=== PATIENT | female | born 1935 | race Caucasian/White ===

== ENCOUNTER 2020-04-15 08:58 | Outpatient (CLI) | payer MEDICARE, SELFPAY ==
--- NOTE | 2020-04-15 09:05 | MM_ITS ---
WS: [id number] BILATERAL DIGITAL SCREENING MAMMOGRAPHY WITH CAD CLINICAL INFORMATION: SCREENING HISTORY: Screening mammogram. No current complaints. COMPARISON: TECHNIQUE: Bilateral CC and MLO views. FINDINGS: The breasts are composed of heterogeneous fibroglandular density tissue, which can limit the detectio n of small underlying mass lesions. No suspicious mass, asymmetry, calcifications, or architectural d istortion. No evidence of malignancy. MM/[id number] IMPRESSION: BI-RADS: 1-Negative FOLLOW UP: 1 Year Follow-up Recommend return to annual screening mammography.
[2020-04-15 09:27] LABS: Basophils % 0.6 %; Eosinophils # 0.3 10^3/uL (0.0-0.8); Eosinophils % 3.9 %; Hemoglobin 13.9 g/dL (11.5-15.3); Lymphocytes # 1.8 10^3/uL (0.8-4.8); Lymphocytes % 28.2 %; Mean Corpuscular HGB Conc 32.3 g/dL (30.0-36.0); Mean Corpuscular Hemoglobin 30.4 pg (28.0-34.0); Mean Corpuscular Volume 94.1 fL (81-99); Mean Platelet Volume 10.1 fL (7.4-10.4); Monocytes # 0.4 10^3/uL (0.2-0.9); Monocytes % 5.7 %; Neutrophils # 3.96 10^3/uL (1.8-7.7); Neutrophils % 61.4 %; Nucleated Red Blood Cells % 0 %; Platelet Count 233 10^3/cmm (130-400); Red Blood Count 4.57 10^6/uL (4.1-5.3); Red Cell Distribution Width 13.7 % (12.1-15.1); White Blood Count 6.5 10^3/uL (4.0-10.0)
[2020-04-15 09:51] LABS: Estmated Average Glucose 134; Hemoglobin A1C 6.3 % (4.0-6.0)
[2020-04-15 09:55] LABS: Alanine Aminotransferase 13 U/L (0-33); Albumin Level 4.7 g/dL (3.5-5.2); Alkaline Phosphatase 77 IU/L (35-105); Anion Gap 11.1 (5-19); Aspartate Amino Transferase 20 U/L (0-32); Blood Urea Nitrogen 19 mg/dL (8-23); Calcium 10.4 mg/dL (8.5-10.5); Carbon Dioxide 28 mmol/L (22-29); Chloride 99 mmol/L (98-107); Globulin 2.2 g/dL (1.3-4.6); Glucose 114 mg/dL (65-115); Osmolality Calculated 275 mOsm/kg (285-295); Potassium 4.1 mmol/L (3.5-5.1); Sodium 134 mmol/L (136-145); Thyroid Stimulating Hormone 2.43 uIU/mL (0.27-4.20); Total Bilirubin 0.5 mg/dL (0.15-1.2); Total Protein 6.9 g/dL (6.6-8.7)
== END 2020-04-15 08:59 | disposition home or self-care (01) ==
LOC: RADSHAW 09:04
PROVIDERS: PCP Internal Medicine; Visit Provider Internal Medicine
DX: Z12.31 Encounter for screening mammogram for malignant neoplasm of breast (principal); E78.00 Pure hypercholesterolemia, unspecified; E03.9 Hypothyroidism, unspecified; I10 Essential (primary) hypertension
CPT/HCPCS: 77067; 80053; 83036; 84443; 85025

== ENCOUNTER 2021-04-28 08:10 | Outpatient (CLI) | payer MEDICARE, SELFPAY ==
--- NOTE | 2021-04-28 08:21 | MM_ITS ---
WS: [id number] Bilateral screening digital mammogram, 04/28/2021 Clinical Data: Z00.00 - Encounter for general adult medical examination ... Comparison: 04/15/2020, 02/19/2019, 01/30/2018, 10/29/2012, 10/15/2011, 09/27/2010, 08/26/2009, 08/20/2008, 1 10/19/2006, 07/01/2006. Findings: The breast parenchymal pattern shows fibroglandular tissue. No spiculated masses or clustered calcif ications are seen. There is a mole marker on the left breast. MM/[id number] Impression: 1. Negative bilateral mammogram unchanged. 2. Recommend annual screening mammograms. BIRADS: 1-Negative FOLLOW UP: 1 Year Follow-up The CAD schedule checker was used.
== END 2021-04-28 08:11 | disposition home or self-care (01) ==
LOC: RADSHAW 08:14
PROVIDERS: PCP Internal Medicine; Visit Provider Internal Medicine
DX: Z12.31 Encounter for screening mammogram for malignant neoplasm of breast (principal)
CPT/HCPCS: 77067

== ENCOUNTER 2021-04-28 08:48 | Outpatient (CLI) | payer MEDICARE, SELFPAY ==
[2021-04-28 09:11] LABS: Basophils # 0.1 10^3/uL (0.0-0.1); Basophils % 0.8 %; Eosinophils # 0.3 10^3/uL (0.0-0.8); Eosinophils % 4.3 %; Hematocrit 44.4 % (37.0-47.0); Hemoglobin 14.4 g/dL (11.5-15.3); Lymphocytes # 2.4 10^3/uL (0.8-4.8); Lymphocytes % 30.3 %; Mean Corpuscular HGB Conc 32.4 g/dL (30.0-36.0); Mean Corpuscular Hemoglobin 31.2 pg (28.0-34.0); Mean Corpuscular Volume 96.1 fl (81-99); Mean Platelet Volume 9.8 fL (7.4-10.4); Monocytes # 0.5 10^3/uL (0.2-0.9); Monocytes % 6.7 %; Neutrophils # 4.48 10^3/uL (1.8-7.7); Neutrophils % 57.6 %; Nucleated Red Blood Cells % 0 %; Platelet Count 232 10^3/cmm (130-400); Red Blood Count 4.62 10^6/uL (4.1-5.3); Red Cell Distribution Width 13.5 % (12.1-15.1); White Blood Count 7.8 10^3/uL (4.0-10.0)
[2021-04-28 09:35] LABS: Estmated Average Glucose 111; Hemoglobin A1C 5.5 % (4.0-6.0)
[2021-04-28 09:39] LABS: Alanine Aminotransferase 13 U/L (0-33); Albumin Level 4.5 g/dL (3.5-5.2); Alkaline Phosphatase 86 IU/L (35-105); Anion Gap 14.4 (5-19); Aspartate Amino Transferase 16 U/L (0-32); Blood Urea Nitrogen 17 mg/dL (8-23); Calcium 10.1 mg/dL (8.5-10.5); Carbon Dioxide 28 mmol/L (22-29); Chloride 100 mmol/L (98-107); Chol HDL Ratio 2.36 mg/dL (0.0-4.40); Cholesterol 139 mg/dL (0-200); Glucose 106 mg/dL (65-115); HDL Cholesterol 59 mg/dL (60-100); LDL Cholesterol Calculated 62 mg/dL (50-129); LDL HDL Ratio 1.05 RATIO (0.00-3.22); Osmolality Calculated 288 mOsm/kg (285-295); Potassium 4.4 mmol/L (3.5-5.1); Sodium 138 mmol/L (136-145); Thyroid Stimulating Hormone 3.68 uIU/mL (0.27-4.20); Total Bilirubin 0.4 mg/dL (0.15-1.2); Total Protein 7.5 g/dL (6.6-8.7); Triglycerides 89 mg/dL (0-150)
== END 2021-04-28 08:49 | disposition home or self-care (01) ==
PROVIDERS: PCP Internal Medicine; Visit Provider Internal Medicine
DX: I10 Essential (primary) hypertension (principal); Z00.00 Encounter for general adult medical examination without abnormal findings; E03.9 Hypothyroidism, unspecified
CPT/HCPCS: 80053; 80061; 83036; 84443; 85025

== ENCOUNTER → 2022-07-09 14:22 | Outpatient (BNVA) | payer MEDICARE, SELFPAY | PROVIDERS: PCP Internal Medicine; Visit Provider Internal Medicine | DX: F43.21 Adjustment disorder with depressed mood (principal); Z63.4 Disappearance and death of family member; I10 Essential (primary) hypertension; Z00.00 Encounter for general adult medical examination without abnormal findings; E78.00 Pure hypercholesterolemia, unspecified; E03.9 Hypothyroidism, unspecified | CPT/HCPCS: 80053; 80061; 84443; 85025 ==

== ENCOUNTER → 2022-08-05 11:15 | Outpatient (BNVA) | payer MEDICARE, SELFPAY | PROVIDERS: PCP Internal Medicine; Visit Provider Registered Nurse Neonatal Intensive Care | DX: J02.9 Acute pharyngitis, unspecified (principal); J06.9 Acute upper respiratory infection, unspecified | CPT/HCPCS: 87400 ==

== ENCOUNTER 2022-09-26 11:21 | Emergency (ER) | payer MEDICARE, SELFPAY ==
[2022-09-26] VITALS (13 sets, daily range): BP systolic 145–222; BP diastolic 49–101; PULSE 66–79; RESP 16–24; TEMP 36.7; O2SAT 95–98; BMI 26.3
--- NOTE | 2022-09-26 11:37 | ED_ITS ---
HPI - Dizziness General: Chief Complaint: Dizziness Stated Complaint: dizziness Time Seen by Provider: 09/26/22 11:37 History of Present Illness: HPI Narrative: Ms Rg is an 87-year-old lady with history of hypertension, thyroid disorder, hyperlipidemia presenting to the emergency department due to dizziness. She reports few day history of intermittent episodes of room spinning sensation. Today was the most severe and started while she was standing. Describes sudden onset of severe room spinning and unsteady feeling requiring assistance. Denies any other associated neurologic symptoms. Has noticed some visual disturbance but is unsure if it is binocular or monocular. No other reliable triggering factors or events or history of similar. No other specific changes in health, exacerbating, or alleviating factors identified. Onset (ago): day(s) Timing: intermittent Severity: severe Description: room spinning , off-balance and difficulty walking History of similar symptoms: No Exacerbating factors: movement/ambulation and change in body position Relieving factors: nothing Associated symptoms: Reports no associated symptoms Associated neuro symptoms: Reports no associated symptoms Review of Systems General: Reports: 10 or more systems reviewed and unremarkable except in HPI and below PFSH ED PFSH: Medical History (Updated 10/04/22 @ 00:00 by LUIS DANIEL West) Essential (primary) hypertension Hypothyroidism, unspecified Pure hypercholesterolemia, unspecified Social History Smoking and tobacco status: current every day smoker Alcohol intake: never Adopted: No Marital status: Number of children: 4 Number of grandchildren: 6 service: No History of recent travel: No Current gender identity: Female Physical Exam Const: COMMON NORMALS: patient oriented x3 and alert GENERAL APPEARANCE: cooperative and well developed HENMT: COMMON NORMALS: normocephalic and atraumatic HEAD & SCALP: normocephalic and atraumatic Eye: COMMON NORMALS: conjunctivae normal CONJUNCTIVA: Yes conjunctivae no rmal SCLERA: sclerae normal Neck/C-Spine: COMMON NORMALS: supple GENERAL: Yes trachea midline Resp: COMMON NORMALS: normal respiratory effort EFFORT & INSPECTION: Yes able to speak in complete sentences Cardio: COMMON NORMALS: regular rate and regular rhythm RATE: regular rate RHYTHM: regular rhythm GI: COMMON NORMALS: Soft to palpation PALPATION: Yes Soft to palpation and No Tenderness to palpation present (GI) PERCUSSION: normal to percussion Extremity: GENERAL: Yes normal exam except as noted and No edema Neuro: COMMON NORMALS: patient oriented x3, CN's II-XII intact bilaterally, moves all extremities, no focal motor deficits and no sensory deficits noted SENSORIUM/ORIENTATION: Yes alert and No Orientation impaired OTHER: Significantly unsteady when standing Psych: COMMON NORMALS: mental status grossly normal and Normal thought process present THOUGHT PROCESS: Normal thought process present Course Vital Signs: Vital signs: Vital Signs Temperature 98.1 F 09/26/22 11:44 Pulse Rate 77 09/26/22 16:07 Respiratory Rate 16 09/26/22 16:07 Blood Pressure 161/49 09/26/22 16:07 Pulse Oximetry 97 09/26/22 16:07 Oxygen Delivery Me thod 09/26/22 12:30 [facility] - Dizziness Medical Decision Making 87-year-old lady presenting with dizziness. Given duration of symptoms and physical exam findings the patient is not a tPA candidate. EKG shows sinus rhythm with nonspecific ST segment abnormalities, normal intervals, no STEMI. These are changes compared to interpretation from remote prior. Hematologic panel unremarkable similar to prior, perhaps mild dehydration on metabolic panel. In the absence of chest pain I believe that the patient has a negative range 2-hour delta troponin. TSH is elevated with normal free T4. No UTI. Chest x-ray with no lobar consolidation or pneumothorax. No recent comparison available. Given severity of symptoms without reproducible neurologic abnormality consistent with peripheral finding CTA is warranted. I discussed CTA results with patient, no evidence of acute large vessel occlusion or hemorrhage/mass. The patient is on aspirin and statin for secondary prevention given ICA stenosis. Patient feels significantly improved with IV fluids, antivertigo medications. She is able to ambulate with a steady gait. I discussed uncertain nature,, however likely peripheral, of patient's symptoms. She is comfortable with outpatient management with strict return precautions and follow-up plan. The results of ED evaluation were discussed with the patient including prescriptions and/or symptomatic cares (if applicable) including appropriate and responsible use, followup plan, and return precautions. The patient verbalized understanding and felt safe for discharge. Medical Records I reviewed the patient's medical records. Lab Data I reviewed the patient's lab results. 09/26/22 12:00 09/26/22 12:00 Radiology Impressions Chest X-Ray 09/26/22 11:45 IMPRESSION: 1. No acute chest abnormality. 2. Metallic pin left humeral head Head/Neck CTA 09/26/22 11:45 IMPRESSION: 1. Origin RIGHT ICA 70% stenosis. 2. Origin LEFT ICA 65-70% stenosis. 3. Mild atherosclerosis intracranial carotid arteries the cavernous sinuses. 4. Moderate cerebral atrophy and moderate small vessel ischemic changes. 5. No intracranial hemorrhage. Laboratory Results WBC 8.0 10^3/uL (4.0-10.0) 09/26/22 12:00 RBC 4.16 10^6/uL (4.1-5.3) 09/26/22 12:00 Hgb 12.9 g/dL (11.5-15.3) 09/26/22 12:00 Hct 39.5 % (37.0-47.0) 09/26/22 12:00 MCV 95.0 fl (81-99) 09/26/22 12:00 MCH 31.0 pg (28.0-34.0) 09/26/22 12:00 MCHC 32.7 g/dL (30.0-36.0) 09/26/22 12:00 RDW 13.7 % (12.1-15.1) 09/26/22 12:00 Plt Count 208 10^3/cmm (130-400) 09/26/22 12:00 MPV 9.7 fL (7.4-10.4) 09/26/22 12:00 Neut % (Auto) 68.3 % 09/26/22 12:00 Lymph % (Auto) 22.3 % 09/26/22 12:00 [place] % (Auto) 6.1 % 09/26/22 12:00 Eos % (Auto) 2.5 % 09/26/22 12:00 Baso % (Auto) 0.6 % 09/26/22 12:00 Neut # (Auto) 5.47 10^3/uL (1.8-7.7) 09/26/22 12:00 Lymph # (Auto) 1.8 10^3/uL (0.8-4.8) 09/26/22 12:00 [place] # (Auto) 0.5 10^3/uL (0.2-0.9) 09/26/22 12:00 Eos # (Auto) 0.2 10^3/uL (0.0-0.8) 09/26/22 12:00 Baso # (Auto) 0.1 10^3/uL (0.0-0.1) 09/26/22 12:00 Nucleated RBC % (auto) 0 % 09/26/22 12:00 Nucleated RBCs # 0.0 /100WBC 09/26/22 12:00 Sodium 135 mmol/L (136-145) L 09/26/22 12:00 Potassium 4.1 mmol/L (3.5-5.1) 09/26/22 12:00 Chloride 98 mmol/L (98-107) 09/26/22 12:00 Carbon Dioxide 29 mmol/L (22-29) 09/26/22 12:00 Anion Gap 12.1 (5-19) 09/26/22 12:00 BUN 19 mg/dL (8-23) 09/26/22 12:00 Creatinine 0.7 mg/dL (0.5-0.9) 09/26/22 12:00 GFR Calculation Not Reportable 09/26/22 12:00 Glucose 111 mg/dL (65-115) 09/26/22 12:00 Calculated Osmolality 283 mOsm/kg (285-295) L 09/26/22 12:00 Calcium 9.6 mg/dL (8.5-10.5) 09/26/22 12:00 Total Bilirubin 0.3 mg/dL (0.15-1.2) 09/26/22 12:00 AST 19 U/L (0-32) 09/26/22 12:00 ALT 15 U/L (0-33) 09/26/22 12:00 Alkaline Phosphatase 69 U/L (35-105) 09/26/22 12:00 Troponin T Baseline 9 ng/L (0-10) 09/26/22 12:00 Troponin T 120 Minute 13.91 ng/L (0-10) H 09/26/22 14:00 Delta Troponin T 4.91 ABS# (0-10) 09/26/22 14:00 NT-Pro-B Natriuret Pep 469 pg/mL (0-450) H 09/26/22 12:00 Total Protein 6.6 g/dL (6.6-8.7) 09/26/22 12:00 Albumin 4.4 g/dL (3.5-5.2) 09/26/22 12:00 Globulin 2.2 g/dL (1.3-4.6) 09/26/22 12:00 TSH 5.64 uIU/mL (0.27-4.20) H 09/26/22 12:00 Free T4 1.33 ng/dL (0.82-1.77) 09/26/22 12:00 Urine Color Yellow (Yellow) 09/26/22 14:17 Urine Appearance Clear (CLEAR) 09/26/22 14:17 Urine pH 8 (5-7) H 09/26/22 14:17 Ur Specific [place] 1.015 (1.005-1.030) 09/26/22 14:17 Urine Protein Neg (Negative) 09/26/22 14:17 Urine Glucose (UA) Norm (Normal) 09/26/22 14:17 Urine Ketones Negative (Negative) 09/26/22 14:17 Urine Blood Neg (Negative) 09/26/22 14:17 Urine Nitrate Negative (Negative) 09/26/22 14:17 Urine Bilirubin Neg (Negative) 09/26/22 14:17 Prot Sulfosalicylic Acd Negative (Negative) 09/26/22 14:17 Urine Urobilinogen Neg mg/dL (Negative) 09/26/22 14:17 Ur Leukocyte Esterase Negative (Negative) 09/26/22 14:17 Discharge Plan Discharge Patient Disposition: Home Clinical Impression: Dizziness, Carotid artery stenosis Condition: Stable Prescriptions: New meclizine 25 mg tablet 25 mg PO TID PRN (Reason: dizziness) Qty: 30 0RF No Action aspirin [Adult Aspirin Regimen] 81 mg tablet,delayed release (DR/EC) 81 mg PO DAILY garlic 1,000 mg capsule 1,000 mg PO DAILY multivitamin Tablet 1 tab PO DAILY ascorbic acid (vitamin C) 500 mg capsule 500 mg PO BID duloxetine 30 mg capsule,delayed release(DR/EC) 30 mg PO DAILY Qty: 90 3RF simvastatin 20 mg tablet 20 mg PO DAILY Qty: 90 3RF levothyroxine [Synthroid] 88 mcg tablet 88 mcg PO DAILY Qty: 90 3RF metoprolol tartrate 50 mg tablet 50 mg PO BID Qty: 180 3RF Tylenol Ex Str Rapid Release 500 mg Tablet 500 mg PO Q6H PRN (Reason: Pain) Vitamin D3 50 mcg (2,000 unit) Capsule 50 mcg PO DAILY Discharge Orders: Discharge ED (Routine); Ordered 09/26/22 Ordered By: Vinny Bullard Referrals: Carlin Alberts MD [Primary Care Provider] - Discharge Diet: Usual diet Discharge Activity: Increase activity as tolerated Patient Instructions: Vertigo (ED), Dizziness (ED) Activity Restrictions/Additional Instructions: Thank you for visiting the emergency department. You were seen and evaluated for dizziness. The exact cause of your symptoms is unclear though likely related to inner ear irritation or dysfunction causing vertigo. We are pleased that you had improvement. Please ensure that you are staying hydrated and be cautious with position changes. Please follow-up with your primary care provider. Return to the emergency department for any new neurologic symptoms, uncontrolled symptoms, or anything else that you are concerned about a feel needs emergency department evaluation. Coding Level of Care Code ED Elastic Attacher Zigzag for Go Fwleon Exam Comprehensive
--- NOTE | 2022-09-26 11:45 | CT_ITS ---
WS: [id number] CT ANGIOGRAM CEREBRAL AND CAROTID ARTERIES CT HEAD, NONCONTRAST HISTORY: dizziness TECHNIQUE: Noncontrast CT head performed. CT angiogram is performed of the carotid and cerebral arter ies. During arterial injection imaging is obtained from the skull vertex to the aortic arch. Coronal and sagittal reformats are submitted. Additional multi planar reformats of the carotid and cerebral a rteries are submitted, MIP imaging also reviewed. NASCET criteria utilized. All CT scans at [facility] use at least one of these dose optimization techniques: automated exposure control; mA and/ or kV adjustment per patient size (includes targeted exams where dose is matched to clinical indicati on); or iterative reconstruction. CONTRAST: Omnipaque 350; 100 mL IV. DLP: 1055.80 mGy.cm COMPARISON: None available. Noncontrast CT head: Moderate atrophy with moderate small vessel ischemic type changes of the white matter. Diffuse white matter abnormality with no midline shift. No hemorrhage. Small lacunar infarct in the LEFT internal c apsule. Carotid Angiogram: Right carotid: Common carotid artery: Arises normally from the innominate artery. Mild plaque and intimal thickening . More focal circumferential calcification at the bifurcation. Internal carotid artery: Moderate stenosis at the origin RIGHT ICA. Calcified plaque begins at the di stal common carotid artery through the proximal ICA. Stenosis estimated at 70%. External carotid artery: Patent. Left carotid: Common carotid artery: Increased circumferential plaque distal common carotid artery the bifurcation. Internal carotid artery: Moderate stenosis origin LEFT ICA. Stenosis estimated at 65-70%. External carotid artery: Patent. Right vertebral artery: Unremarkable. Left vertebral artery: Small amount of plaque at the origin of the LEFT vertebral artery. Subclavian arteries: No stenosis or significant abnormality. Upper thorax: Negative for acute process. Atherosclerotic plaque within the aortic arch. Thyroid gland: Normal. Osseous structures: No destructive bone lesions. CEREBRAL ANGIOGRAM: Intracranial vertebral arteries: Normal with no significant atherosclerosis. Basilar artery: No significant stenosis or occlusion. No aneurysm. Intracranial Internal carotid arteries: Patent with mild calcification. No stenosis or thrombus. Middle cerebral arteries: Normal. Anterior cerebral arteries and ACOM: Normal. Posterior cerebral arteries and PCOM's: Normal. Dural venous sinuses are normally enhancing. Mastoid air cells: Normal. Paranasal sinuses: Mild mucoperiosteal sinus disease. Calvarium: Normal. CT/CT angio headneck* [id number] IMPRESSION: 1. Origin RIGHT ICA 70% stenosis. 2. Origin LEFT ICA 65-70% stenosis. 3. Mild atherosclerosis intracranial carotid arteries the cavernous sinuses. 4. Moderate cerebral atrophy and moderate small vessel ischemic changes. 5. No intracranial hemorrhage.
--- NOTE | 2022-09-26 11:45 | XRR_ITS ---
PROCEDURE INFORMATION: Exam: XR Chest Exam date and time: 09/26/2022 11:53 AM Age: 87 years old Clinical indication: Other: Dizziness, hypertension TECHNIQUE: Imaging protocol: Radiologic exam of the chest. Views: 1 view. COMPARISON: CR XR cervical spine fl/ex [id number] 04/09/2017 12:33 PM FINDINGS: Lungs: Unremarkable. No consolidation. Pleural spaces: Unremarkable. No pleural effusion. No pneumothorax. Heart/Mediastinum: Unremarkable. No cardiomegaly. Bones/joints: Metallic pin is seen in the left humeral head XR/XR chest 1V portable [id number] IMPRESSION: 1. No acute chest abnormality. 2. Metallic pin left humeral head
--- NOTE | 2022-09-26 11:49 | ECG_ITS ---
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 Measurements Intervals [place] Rate: 68 P: 85 NV: 134 QRS: 74 QRSD: 76 T: 51 QT: 369 QTc: 394 Interpretive Statements SINUS RHYTHM LEFT VENTRICULAR HYPERTROPHY AND ST-T CHANGE [VOLTAGE CRITERIA PLUS ST/T ABNORMALITY] Compared to ECG 12/06/2015 08:54:31 Left ventricular hypertrophy now present ST (T wave) deviation now present Ventricular premature complex(es) no longer present Electronically Signed On 09-27-2022 10:05:36 EXCHANGE ENGINEER by Linda Yarbrough M.D. [id number]
[2022-09-26 12:06] LABS: Basophils # 0.1 10^3/uL (0.0-0.1); Basophils % 0.6 %; Eosinophils # 0.2 10^3/uL (0.0-0.8); Eosinophils % 2.5 %; Hematocrit 39.5 % (37.0-47.0); Hemoglobin 12.9 g/dL (11.5-15.3); Lymphocytes # 1.8 10^3/uL (0.8-4.8); Lymphocytes % 22.3 %; Mean Corpuscular HGB Conc 32.7 g/dL (30.0-36.0); Mean Platelet Volume 9.7 fL (7.4-10.4); Monocytes # 0.5 10^3/uL (0.2-0.9); Monocytes % 6.1 %; Neutrophils # 5.47 10^3/uL (1.8-7.7); Neutrophils % 68.3 %; Nucleated Red Blood Cells % 0 %; Platelet Count 208 10^3/cmm (130-400); Red Blood Count 4.16 10^6/uL (4.1-5.3); Red Cell Distribution Width 13.7 % (12.1-15.1)
[2022-09-26] MEDS: meclizine 25 mg tablet PO (12:15)
[2022-09-26 12:28] LABS: Troponin(5th) Baseline 9 ng/L (0-10)
[2022-09-26 12:38] LABS: Alanine Aminotransferase 15 U/L (0-33); Albumin Level 4.4 g/dL (3.5-5.2); Alkaline Phosphatase 69 U/L (35-105); Anion Gap 12.1 (5-19); Aspartate Amino Transferase 19 U/L (0-32); Blood Urea Nitrogen 19 mg/dL (8-23); Calcium 9.6 mg/dL (8.5-10.5); Carbon Dioxide 29 mmol/L (22-29); Chloride 98 mmol/L (98-107); Globulin 2.2 g/dL (1.3-4.6); Glucose 111 mg/dL (65-115); NT Pro B Type Natriuretic Pept 469 pg/mL (0-450); Osmolality Calculated 283 mOsm/kg (285-295); Potassium 4.1 mmol/L (3.5-5.1); Sodium 135 mmol/L (136-145); Thyroid Stimulating Hormone 5.64 uIU/mL (0.27-4.20); Total Bilirubin 0.3 mg/dL (0.15-1.2); Total Protein 6.6 g/dL (6.6-8.7)
[2022-09-26] MEDS: iohexol 350 mg/mL 500 mL Btl (per mL) IV (13:09)
[2022-09-26 13:34] LABS: Free T4 Free Thyroxine 1.33 ng/dL (0.82-1.77)
--- NOTE | 2022-09-26 13:56 | ECG_ITS ---
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 Measurements Intervals [place] Rate: 68 P: 81 DC: 135 QRS: 74 QRSD: 80 T: 52 QT: 388 QTc: 415 Interpretive Statements SINUS RHYTHM NONSPECIFIC ST & T-WAVE ABNORMALITY Compared to ECG 09/26/2022 12:02:11 T-wave abnormality now present Left ventricular hypertrophy no longer present ST (T wave) deviation no longer present Electronically Signed On 09-27-2022 10:11:28 DIRECTOR BUSINESS TRAVEL by Linda Yarbrough M.D. [id number]
[2022-09-26 14:23] LABS: Troponin 5 2HR 13.91 ng/L (0-10)
[2022-09-26 14:24] LABS: Add Urine Microscopic? NO; Charge for UA Resulting for Rev
[2022-09-26 14:30] LABS: Troponin 5 2HR Delta 4.91 ABS# (0-10)
[2022-09-26 14:40] LABS: Bilirubin Urine Neg (Negative); Blood Urine Neg (Negative); Glucose Urine UA Norm (Normal); Ketones Urine Negative (Negative); Leukocyte Esterase Urine Negative (Negative); Nitrate Urine Negative (Negative); Protein Urine Neg (Negative); Specific Gravity, Urine 1.015 (1.005-1.030); Sulfosalicylic Acid Urine Negative (Negative); Urine Appearance Clear (CLEAR); Urine Color Yellow (Yellow); Urobilinogen Urine Neg (Negative); pH Urine 8 (5-7)
[2022-09-26] MEDS: metoclopramide 5 mg/mL SDV 2 mL IVP (15:09)
[2022-09-26] MEDS: sodium chloride 0.9% 500 ML 999 ML IV (15:10)
[2022-09-26] MEDS: amlodipine 5 mg Tablet PO (16:02)
== END 2022-09-26 16:11 | disposition home or self-care (01) ==
PROVIDERS: Emergency Provider Emergency Medicine; PCP Internal Medicine
DX: R42 Dizziness and giddiness (principal); I65.29 Occlusion and stenosis of unspecified carotid artery; Z79.82 Long term (current) use of aspirin; I10 Essential (primary) hypertension; F17.210 Nicotine dependence, cigarettes, uncomplicated
CPT/HCPCS: 70496; 70498; 71045; 80053; 81003; 83880; 84439; 84443; 84484; 85025; 93005; 96361; 96374; 99285; J2765; J7040; J8597; Q9967

== ENCOUNTER → 2024-01-09 11:26 | Outpatient (BNVA) | payer MEDICARE, SELFPAY | PROVIDERS: Visit Provider Family Medicine | DX: I10 Essential (primary) hypertension (principal); Z13.6 Encounter for screening for cardiovascular disorders; E11.9 Type 2 diabetes mellitus without complications; E03.9 Hypothyroidism, unspecified | CPT/HCPCS: 80053; 80061; 82043; 84439; 84443; 85025 ==

== ENCOUNTER → 2024-02-25 12:25 | Outpatient (BNVA) | payer MEDICARE, SELFPAY | PROVIDERS: PCP Family Medicine; Visit Provider Family Medicine | DX: E03.9 Hypothyroidism, unspecified (principal) | CPT/HCPCS: 84439; 84443 ==

== ENCOUNTER → 2024-07-29 09:13 | Outpatient (BNVA) | payer MEDICARE, SELFPAY | PROVIDERS: PCP Family Medicine Adult Medicine; Visit Provider Family Medicine Adult Medicine | DX: E03.9 Hypothyroidism, unspecified (principal) | CPT/HCPCS: 84439; 84443 ==

== ENCOUNTER → 2024-11-06 09:17 | Outpatient (BNVA) | payer OTHER, SELFPAY | PROVIDERS: PCP Family Medicine; Visit Provider Family Medicine | DX: I10 Essential (primary) hypertension (principal); I65.29 Occlusion and stenosis of unspecified carotid artery; E78.00 Pure hypercholesterolemia, unspecified; R73.03 Prediabetes; E03.9 Hypothyroidism, unspecified; K21.9 Gastro-esophageal reflux disease without esophagitis | CPT/HCPCS: 80053; 80061; 82607; 83036; 84439; 84443; 85025 ==

== ENCOUNTER → 2024-11-26 12:45 | Outpatient (BNVA) | payer OTHER, SELFPAY | PROVIDERS: PCP Family Medicine; Visit Provider Physician Assistant | DX: S52.592A Other fractures of lower end of left radius, initial encounter for closed fracture (principal); S52.612A Displaced fracture of left ulna styloid process, initial encounter for closed fracture; W19.XXXA Unspecified fall, initial encounter; M18.9 Osteoarthritis of first carpometacarpal joint, unspecified | CPT/HCPCS: 73110 ==

== ENCOUNTER 2024-11-30 06:00 | Outpatient (CLI) | payer MEDICARE, SELFPAY | END 2024-11-30 23:59 | disposition home or self-care (01) | LOC: SOT 12-02 10:48 | PROVIDERS: Visit Provider Nurse Practitioner | DX: Z46.89 Encounter for fitting and adjustment of other specified devices (principal); S62.102D Fracture of unspecified carpal bone, left wrist, subsequent encounter for fracture with routine healing; W01.0XXD Fall on same level from slipping, tripping and stumbling without subsequent striking against object, subsequent encounter | CPT/HCPCS: 99204; L3984 ==

== ENCOUNTER → 2024-11-30 13:48 | Outpatient (BNVA) | payer OTHER, MEDICARE, SELFPAY | PROVIDERS: PCP Family Medicine; Referring Provider Physician Assistant; Visit Provider Nurse Practitioner | DX: S52.532A Colles' fracture of left radius, initial encounter for closed fracture (principal); S52.615A Nondisplaced fracture of left ulna styloid process, initial encounter for closed fracture; W19.XXXA Unspecified fall, initial encounter; Y92.009 Unspecified place in unspecified non-institutional (private) residence as the place of occurrence of the external cause | CPT/HCPCS: 73110 ==

== ENCOUNTER → 2024-12-28 14:07 | Outpatient (BNVA) | payer MEDICARE, SELFPAY | PROVIDERS: PCP Family Medicine; Visit Provider Nurse Practitioner | DX: S52.532D Colles' fracture of left radius, subsequent encounter for closed fracture with routine healing (principal); S52.615D Nondisplaced fracture of left ulna styloid process, subsequent encounter for closed fracture with routine healing; W19.XXXD Unspecified fall, subsequent encounter; Y92.009 Unspecified place in unspecified non-institutional (private) residence as the place of occurrence of the external cause; Z46.89 Encounter for fitting and adjustment of other specified devices | CPT/HCPCS: 73110 ==

== ENCOUNTER → 2025-01-18 08:42 | Outpatient (BNVA) | payer MEDICARE, SELFPAY | PROVIDERS: PCP Family Medicine; Visit Provider Nurse Practitioner | DX: S52.615D Nondisplaced fracture of left ulna styloid process, subsequent encounter for closed fracture with routine healing (principal); S52.532D Colles' fracture of left radius, subsequent encounter for closed fracture with routine healing; S62.619D Displaced fracture of proximal phalanx of unspecified finger, subsequent encounter for fracture with routine healing; W19.XXXD Unspecified fall, subsequent encounter; Y92.009 Unspecified place in unspecified non-institutional (private) residence as the place of occurrence of the external cause | CPT/HCPCS: 73110; 73130; 99214 ==

== ENCOUNTER → 2025-02-08 09:42 | Outpatient (BNVA) | payer MEDICARE, SELFPAY | PROVIDERS: PCP Family Medicine; Visit Provider Nurse Practitioner | DX: S52.532D Colles' fracture of left radius, subsequent encounter for closed fracture with routine healing (principal); S52.615D Nondisplaced fracture of left ulna styloid process, subsequent encounter for closed fracture with routine healing; W19.XXXD Unspecified fall, subsequent encounter; Y92.009 Unspecified place in unspecified non-institutional (private) residence as the place of occurrence of the external cause | CPT/HCPCS: 73110 ==

== ENCOUNTER → 2025-03-15 14:00 | Outpatient (BNVA) | payer MEDICARE, SELFPAY | PROVIDERS: PCP Family Medicine; Visit Provider Nurse Practitioner | DX: S52.532D Colles' fracture of left radius, subsequent encounter for closed fracture with routine healing (principal); S52.615D Nondisplaced fracture of left ulna styloid process, subsequent encounter for closed fracture with routine healing; W19.XXXD Unspecified fall, subsequent encounter; Y92.009 Unspecified place in unspecified non-institutional (private) residence as the place of occurrence of the external cause | CPT/HCPCS: 73110; 99213 ==

== ENCOUNTER → 2025-08-16 08:02 | Outpatient (BNVA) | payer MEDICARE, SELFPAY | PROVIDERS: PCP Family Medicine; Visit Provider Nurse Practitioner | DX: M19.042 Primary osteoarthritis, left hand (principal) | CPT/HCPCS: 73130; 99214 ==